=== PATIENT | female | born 1945 | race Caucasian/White ===

== ENCOUNTER 2018-06-09 11:11 | Outpatient (CLI) | payer BC ==
[2018-06-09 12:15] LABS: Hemoglobin 11.5 g/dL (12.0-16.0); Mean Corpuscular Hemoglobin 29.2 pg (27.0-31.0); Mean Platelet Volume 7.5 fL (7.4-10.4); Platelet Count 149 thou/uL (130-400); RBC Distribution Width 15.4 % (11.5-14.5); Red Blood Cell (RBC) Count 3.94 mill/uL (4.20-5.40); White Blood Cell (WBC) Count 4.3 thou/uL (4.8-10.8)
[2018-06-09 12:34] LABS: Anion Gap 13 mmol/L (10-20); BUN (Urea Nitrogen) 25 mg/dL (9.8-20.1); Calc. Creatinine Clearance 0 mL/min (70-130); Calcium 9.5 mg/dL (7.8-10.44); Carbon Dioxide 25 mmol/L (23-31); Chloride 107 mmol/L (98-107); Estimated GFR-MDRD 35; Glucose 138 mg/dL (80-115); Potassium 4.3 mmol/L (3.5-5.1); Sodium 141 mmol/L (136-145)
--- NOTE | 2018-06-09 17:06 | EKG ---
Test Reason : Blood Pressure : / mmHG Vent. Rate : 069 BPM Atrial Rate : 069 BPM P-R Int : 216 ms QRS Dur : 098 ms QT Int : 412 ms P-R-T Axes : 065 046 063 degrees QTc Int : 441 ms Sinus rhythm with 1st degree A-V block Incomplete right bundle branch block Possible Anterior infarct , age undetermined Abnormal ECG When compared with ECG of 13-JAN-2017 13:05, No significant change was found Confirmed by DR. Nitin PARKINSON ([id number]) on 06/09/2018 5:06:41 PM Referred By: JOHNNA Confirmed By:DR. Nitin PARKINSON
== END 2018-06-09 11:12 | disposition home or self-care (01) ==
LOC: LABBT 11:11
PROVIDERS: ATTEND Surgery
DX: Z01.818 Encounter for other preprocedural examination (principal); C90.00 Multiple myeloma not having achieved remission
CPT/HCPCS: 80048; 85027; 93005; 93010

== ENCOUNTER 2018-06-16 10:56 | Day surgery (SDC) | payer BC ==
[2018-06-09 11:37] VITALS: BMI 32.1
[2018-06-16] MEDS ORDERED: CEFAZOLIN 2 GM/50 ML BAG ONE (11:48)
[2018-06-16] MEDS ORDERED: Lidocaine 2% PF 5 ML VIAL ONE (13:36)
[2018-06-16] MEDS ORDERED: Bupivacaine/Epinephrine 0.25% 30 ML VIAL ONE (13:36)
[2018-06-16] MEDS ORDERED: Propofol 500 MG/50 ML VIAL ONE (13:45)
[2018-06-16] MEDS ORDERED: Fentanyl 100 MCG/2 ML VIAL ONE (13:45)
--- NOTE | 2018-06-16 15:47 | RAD ---
EXAM: CHEST ONE VIEW: 06/16/18 HISTORY: 71-year-old female with history of postop open heart. COMPARISON: 01/16/17. FINDINGS: Right central line injection port. Postop midline sternotomy. Heart size is within normal limits. The lungs are clear. No confluent pneumonia, overt edema, or pleural effusion . IMPRESSION: No acute intrathoracic disease. Postop midline sternotomy. Right central line and injection port. POS: TPC
[2018-06-16] MEDS ORDERED: PROPOFOL 200 MG/20 ML VIAL ONE (16:19)
--- NOTE | 2018-06-20 08:37 | OP ---
DATE OF PROCEDURE: 06/16/2018 PREOPERATIVE DIAGNOSIS: Multiple myeloma. POSTOPERATIVE DIAGNOSIS: Multiple myeloma. PROCEDURE PERFORMED: Right MediPort (tunneled central line subcutaneous port, CT injectable right IJ). ANESTHESIA: TIVA, local. COMPLICATIONS: None. SPECIMEN: None. FINDINGS: Tip of the catheter at the atriocaval junction. DESCRIPTION OF PROCEDURE: The patient was taken to the operating room and laid supine on the operating room table. After sedation was obtained, bilateral neck and chest were prepped and draped in a sterile fashion. Local anesthetic was infiltrated over the right internal jugular vein. The patient placed in Trendelenburg position. A 22-gauge finder needle followed by a Seldinger needle used to infiltrate the right internal jugular vein. Wire was passed into the superior vena cava under fluoro guidance. The dilators used the guide to dilate the internal jugular vein. 3 cm incision was made in the right upper chest, tubing for the MediPort tunneled from the inferior to superior incision and suture sheath was placed over the wire into the superior vena cava under fluoro guidance. The dilator and wire removed and the catheter was sewn into the sheath. The sheath was peeled away. The tip of the catheter was at the atriocaval junction. The MediPort tubing cut to fit the MediPort at the lower incision, connected to the MediPort, which was sewn to the chest wall in the subcutaneous pocket using Prolene. MediPort flushes and draws blood without difficulty. It was flushed with a heparin flush. The wounds were all irrigated, closed using 3-0 Vicryl, 4-0 Monocryl, and Dermabond. The patient was sent to Recovery in stable condition. All instrument counts, needle counts, and lap counts were correct. Job ID: [id number]
== END 2018-06-16 16:10 | disposition home or self-care (01) ==
LOC: SDC 10:56
PROVIDERS: ATTEND Surgery
PROC: 0JH63WZ Insertion of Totally Implantable Vascular Access Device into Chest Subcutaneous Tissue and Fascia, Percutaneous Approach (ICD-10-PCS; principal; 2018-06-16)
DX: C90.00 Multiple myeloma not having achieved remission (principal); I25.10 Atherosclerotic heart disease of native coronary artery without angina pectoris; E03.9 Hypothyroidism, unspecified; E78.5 Hyperlipidemia, unspecified; E11.9 Type 2 diabetes mellitus without complications; I10 Essential (primary) hypertension; Z79.4 Long term (current) use of insulin; Z79.82 Long term (current) use of aspirin; Z79.899 Other long term (current) drug therapy; Z95.1 Presence of aortocoronary bypass graft
CPT/HCPCS: 71045; C1788; J1642; J2001; J2704; J3010

== ENCOUNTER 2018-09-11 13:06 | Outpatient (CLI) | payer BC ==
--- NOTE | 2018-09-11 13:28 | RAD ---
EXAM: Chest 2 views: HISTORY: Pneumonia. Multiple myeloma. COMPARISON: 06/16/2018 FINDINGS: There is a normal-sized cardiomediastinal silhouette. There is no evidence of consolidation, mass, or pleural effusion. The Mediport is unchanged in position. The patient is status post sternotomy. IMPRESSION: No evidence of acute cardiopulmonary disease
== END 2018-09-11 13:07 | disposition home or self-care (01) ==
LOC: BICRAD 13:06
PROVIDERS: ATTEND Internal Medicine Hematology & Oncology
DX: J18.9 Pneumonia, unspecified organism (principal); D70.1 Agranulocytosis secondary to cancer chemotherapy; C90.02 Multiple myeloma in relapse; D70.8 Other neutropenia
CPT/HCPCS: 71046; 80053; 81001; 82248; 83615; 84100; 84550

== ENCOUNTER 2019-03-08 18:55 | Inpatient (IN) | payer BC, MEDICARE ==
[2019-03-08 20:01] LABS: #Lymphocytes 0.9 thou/uL (1.20-3.40); #Monocytes 0.5 thou/uL (0.11-0.59); #Neutrophils 7.8 thou/uL (1.40-6.50); %Basophils 0.1 % (0.0-1.0); %Eosinophils 0.4 % (0.0-10.0); %Lymphocytes 9.6 % (21.0-51.0); %Monocytes 5.4 % (0.0-10.0); %Neutrophils 84.6 % (42.0-75.0); Hemoglobin 7.5 g/dL (12.0-16.0); Mean Corpuscular HGB CONC 32.6 g/dL (32.0-36.0); Mean Corpuscular Hemoglobin 27.3 pg (27.0-31.0); Mean Corpuscular Volume 83.8 fL (78.0-98.0); Mean Platelet Volume 7.8 fL (7.4-10.4); Platelet Count 283 thou/uL (130-400); RBC Distribution Width 17.5 % (11.5-14.5); Red Blood Cell (RBC) Count 2.74 mill/uL (4.20-5.40); White Blood Cell (WBC) Count 9.3 thou/uL (4.8-10.8)
[2019-03-08] MEDS ORDERED: Cefepime 2 GM VIAL ONE (20:07)
[2019-03-08 20:23] LABS: ALT (SGPT) 46 U/L (8-55); AST (SGOT) 28 U/L (5-34); Albumin 3.2 g/dL (3.4-4.8); Alkaline Phosphatase 214 U/L (40-110); Anion Gap 11 mmol/L (10-20); BUN (Urea Nitrogen) 21 mg/dL (9.8-20.1); Bilirubin, Total 0.5 mg/dL (0.2-1.2); CK (CPK) 20 U/L (29-168); Calc. Creatinine Clearance 0 mL/min (70-130); Calcium 8.3 mg/dL (7.8-10.44); Carbon Dioxide 21 mmol/L (23-31); Chloride 106 mmol/L (98-107); Estimated GFR-MDRD 31; Globulin 2.5 g/dL (2.4-3.5); Glucose 197 mg/dL (83-110); Lipase 32 U/L (8-78); Protein, Total 5.7 g/dL (6.0-8.3); Sodium 134 mmol/L (136-145)
--- NOTE | 2019-03-08 20:36 | RAD ---
XR Chest 1 View Portable History: Fever Comparison: Chest radiograph September 2018 Findings: Port catheter tip is in good position. Lungs are clear. No pneumothorax. No effusion. No ac lower [place] osseous abnormality. Impression: No acute intrathoracic abnormality.
[2019-03-08 22:20] LABS: Bilirubin Negative (Negative); Blood, Urine 1+ (Negative); Glucose, Urine (Dipstick) Normal (Negative); Leukocyte 500 Leu/uL (Negative); Nitrite Negative (Negative); Protein, Urine (Dipstick) 100 mg/dL (Neg-Trace); Urobilinogen Normal mg/dL (Less than 2)
[2019-03-08 22:25] LABS: Clarity Turbid (Clear)
[2019-03-08 22:26] LABS: Bacteria/HPF 1+ HPF (None Seen); Squamous Epithelial 0-3 HPF (0-3); WBC/HPF Greater Than 50 HPF (0-3)
[2019-03-08] MEDS ORDERED: Ondansetron ODT 4 MG TAB SL PRN (23:26)
[2019-03-08] MEDS ORDERED: Ondansetron PF 4 MG/2 ML Vial IVP PRN (23:26)
[2019-03-08] MEDS ORDERED: Sodium Chloride 0.9% 1,000 ML IV SCH (23:30)
[2019-03-09 03:37] VITALS: BMI 34.2
--- NOTE | 2019-03-09 04:02 | PDOC.EVN ---
Event Note - Event Note Event Note: [id number] HP
[2019-03-09] MEDS: Sodium Chloride 0.9% 1,000 ML IV SCH ×2 (04:15→16:38)
--- NOTE | 2019-03-09 04:28 | HP ---
CHIEF COMPLAINT: Fever. HISTORY OF PRESENT ILLNESS: Ms. Maria is a 73-year-old female with past medical history of multiple myeloma, on chemotherapy, recurrent urinary tract infections, hypertension, hyperlipidemia, hypothyroidism, diabetes mellitus type 2, stem cell transplant, among others. She presented to the emergency room with weakness and fever. The patient has had a urinary tract infection and fever for 2 weeks. The first antibiotic treatment helped, she started on a different antibiotic today. The patient is on maintenance chemo. Workup in the emergency room, the patient was found to have urinary tract infection. Septic workup done in the ED. The patient is started on IV antibiotics, IV cefepime and IV vancomycin. PAST MEDICAL HISTORY: 1. Multiple myeloma. 2. Stem cell transplant. 3. Diabetes mellitus, type 2. 4. Hypertension. 5. Hyperlipidemia. 6. Hypothyroidism. PAST SURGICAL HISTORY: 1. Cholecystectomy. 2. Coronary artery bypass graft surgery. SOCIAL HISTORY: Denies alcohol drinking and no smoking history. ALLERGIES: NO KNOWN ALLERGIES. HOME MEDICATIONS: Please see home medication reconciliation form for updated medications. REVIEW OF SYSTEMS: Review of 14 systems is negative except what is mentioned in the history of present illness. PHYSICAL EXAMINATION: GENERAL: The patient is awake, alert, does not appear to be in acute distress. CURRENT VITAL SIGNS: Blood pressure 129/59, temperature 99.5, respiratory rate 16, pulse is 75. HEAD AND NECK: Normocephalic, atraumatic. Neck is supple. No JVD. CHEST: Fair bilateral air entry. HEART: S1, S2. Regular. ABDOMEN: Soft, nontender. Bowel sounds are present. NEUROLOGIC: Awake, alert, oriented x3. PSYCH: Normal mood. EXTREMITIES: No clubbing or cyanosis. IMAGING: Chest x-ray no acute findings. LABORATORY DATA: Sodium 134, potassium 4.0, BUN is 21, creatinine 1.6, glucose 197. WBC 9.3, hemoglobin 7.5, platelets 183. Urinalysis is positive for wbc's, leukocyte esterase, and bacteria. ASSESSMENT: 1. Fever in an immunocompromised patient. 2. Sepsis secondary to urinary tract infection. 3. Acute urinary tract infection. 4. Multiple myeloma, on chemotherapy. 5. Immunocompromised. 6. Diabetes mellitus with hyperglycemia. 7. Hypertension. PLAN: 1. Admit. 2. Septic workup including blood cultures, urine cultures. 3. IV antibiotics. Continue with IV cefepime and IV vancomycin. 4. IV fluid hydration. 5. Reconcile home medications. 6. DVT prophylaxis as appropriate. 7. Expected length of stay two midnights or more. Job ID: [id number]
[2019-03-09] MEDS: Cefepime 1 GM in Sodium Chloride 0.9% 100 ML IVPB SCH ×2 (07:22→20:07)
[2019-03-09] MEDS ORDERED: Dextrose 5% in Water 1,000 ML IV PRN (07:46)
[2019-03-09] MEDS ORDERED: HumaLOG 300 UNITS/3 ML VIAL SC PRN (07:46)
[2019-03-09] MEDS ORDERED: Dextrose 50% Abboject 50 ML SYRINGE SLOW IVP PRN (07:46)
--- NOTE | 2019-03-09 07:51 | PDOC.HOSPP ---
- Subjective Encounter Date: 03/09/19 Encounter Time: 07:50 Subjective: 73 y/o female with MM s/p stem cell transplant with recurrence, recurrent UTI with known history of incomplete voiding admitted with intractable dysuria and fever despite oral antibiotics associated with generalized weakness. Started on broad spectrum antibiotics. Feeling better. Fever is down currently. - Objective Vital Signs & Weight: Vital Signs (12 hours) Temp Pulse Resp BP Pulse Ox 03/09/19 04:14 97.9 F 74 16 134/67 97 03/09/19 00:00 98.5 F 78 183 H 137/66 97 03/08/19 23:30 97 03/08/19 23:28 98.5 F 78 18 137/66 94 L Weight Weight 175 lb 0.752 oz Result Diagrams: 03/08/19 19:47 03/08/19 19:47 Additional Labs: Accuchecks 03/09/19 03/08/19 04:31 23:22 POC Glucose 102 187 H Hospitalist ROS - Medication Medications: Active Medications Generic Name Dose Route Start Last Admin Trade Name Bhavya PRN Reason Stop Dose Admin Sodium Chloride 1,000 mls @ 90 mls/hr 03/08/19 23:30 03/09/19 04:22 Normal Saline 0.9% IV 03/09/19 08:30 Not Given .[id number] JONO Cefepime HCl 1 gm/ Sodium 100 mls @ 200 mls/hr 03/09/19 08:00 03/09/19 07:22 Chloride IVPB 100 mls 0800,2000 JONO Administration Sodium Chloride 1,000 mls @ 70 mls/hr 03/09/19 04:15 03/09/19 04:15 Normal Saline 0.9% IV 1,000 mls .[id number] JONO Administration - Exam General Appearance: awake alert Eye: anicteric sclera ENT: normocephalic atraumatic, moist mucosa Neck: supple, no JVD Heart: RRR Respiratory: no wheezes, no ronchi, normal chest expansion Respiratory - other findings: few bibasal crackles and transmitted sound Gastrointestinal: soft, non-tender, non-distended, normal bowel sounds Extremities: 1+ LE edema Neurological: cranial nerve grossly intact, no focal deficits Musculoskeletal: generalized weakness Psychiatric: normal affect, A&O x 3 Hosp A/P (1) Sepsis Code(s): A41.9 - SEPSIS, UNSPECIFIED ORGANISM Status: Acute (2) UTI (urinary tract infection) Status: Acute (3) Urinary retention Code(s): R33.9 - RETENTION OF URINE, UNSPECIFIED Status: Acute (4) Multiple myeloma in relapse Code(s): C90.02 - MULTIPLE MYELOMA IN RELAPSE Status: Acute (5) Diabetes mellitus Code(s): E11.9 - TYPE 2 DIABETES MELLITUS WITHOUT COMPLICATIONS Status: Acute (6) Hypothyroid Code(s): E03.9 - HYPOTHYROIDISM, UNSPECIFIED Status: Acute (7) CKD (chronic kidney disease) stage 3, GFR 30-59 ml/min Code(s): N18.3 - CHRONIC KIDNEY DISEASE, STAGE 3 (MODERATE) Status: Acute (8) CRISPIN (acute kidney injury) Code(s): N17.9 - ACUTE KIDNEY FAILURE, UNSPECIFIED Status: Acute (9) Anemia Code(s): D64.9 - ANEMIA, UNSPECIFIED Status: Acute (10) Physical deconditioning Code(s): R53.81 - OTHER MALAISE Status: Acute - Plan Continuje broad spectrum antibiotics. Awaitt culture results. Get CT abd/pelvis Monitor post void residuals Restart insulin therapy Hold lasix. Monitor HB and renal function. Awaiting Oncology consult. Consult PT
[2019-03-09 08:55] LABS: #Eosinphils 0.1 thou/uL (0.0-0.7); #Lymphocytes 0.5 thou/uL (1.20-3.40); #Monocytes 0.3 thou/uL (0.11-0.59); #Neutrophils 5.9 thou/uL (1.40-6.50); %Basophils 0.1 % (0.0-1.0); %Eosinophils 0.7 % (0.0-10.0); %Lymphocytes 7.3 % (21.0-51.0); %Neutrophils 86.8 % (42.0-75.0); Mean Corpuscular HGB CONC 31.5 g/dL (32.0-36.0); Mean Corpuscular Volume 85.6 fL (78.0-98.0); Mean Platelet Volume 7.5 fL (7.4-10.4); Platelet Count 255 thou/uL (130-400); RBC Distribution Width 17.5 % (11.5-14.5); Red Blood Cell (RBC) Count 2.96 mill/uL (4.20-5.40); White Blood Cell (WBC) Count 6.8 thou/uL (4.8-10.8)
[2019-03-09] MEDS ORDERED: Vancomycin HCl 1 GM in Sodium Chloride 0.9% 250 ML 250 ML IVPB SCH (09:00)
[2019-03-09 09:16] LABS: Anion Gap 11 mmol/L (10-20); BUN (Urea Nitrogen) 16 mg/dL (9.8-20.1); Calc. Creatinine Clearance 51 mL/min (70-130); Calcium 8.4 mg/dL (7.8-10.44); Carbon Dioxide 20 mmol/L (23-31); Chloride 113 mmol/L (98-107); Estimated GFR-MDRD 41; Glucose 111 mg/dL (83-110); Potassium 4.1 mmol/L (3.5-5.1); Sodium 140 mmol/L (136-145)
--- NOTE | 2019-03-09 09:17 | CT ---
CT Abdomen Pelvis WO Con History: Sepsis with recurrent urinary tract infections. Comparison: None. Findings: Lung bases are clear. No pericardial effusion. Calcified periaortic lymph nodes. Spleen is enlarged. Prior cholecystectomy. Calcifications within the expected location of the pancrea tic uncinate process. Abnormal left perinephric stranding. There arcuate vessel calcifications without definite renal calcu li appreciated numerous right gonadal phleboliths adjacent to the ureter although separate from the ureter. 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 The left renal vein is retroaortic. No dilated loops of large or small bowel. No acute osseous abnormality. Impression: 1. Abnormal asymmetric left perinephric stranding suggesting pyelonephritis. 2. Numerous calcified uterine fibroids. 3. Moderate atherosclerotic disease. 4. Uncinate process and pancreatic head calcifications likely sequelae of prior pancreatitis. 5. 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 Nonemergent follow-up CT urogra m recommended for further evaluation. 6. Mild splenomegaly.
[2019-03-09] MEDS: Magnesium Oxide 400 MG TAB PO SCH ×2 (10:04→20:07)
[2019-03-09] MEDS: Multivitamin W/ Minerals 1 TAB PO SCH (10:04)
[2019-03-09] MEDS: Folic Acid 1 MG TAB PO SCH (10:04)
[2019-03-09] MEDS: Aspirin 81 mg Enteric Coated Tablet PO SCH (10:05)
[2019-03-09] MEDS ORDERED: FLU VACC TS2019-20(65YR UP)/PF 180 MCG/0.5 ML SYRINGE IM ONE (12:30)
--- NOTE | 2019-03-09 15:24 | CON ---
DATE OF CONSULTATION: REASON FOR CONSULT: Multiple myeloma. HISTORY OF PRESENT ILLNESS: Ms. Maria is a pleasant 73-year-old female with IgG lambda multiple myeloma. She is currently on Darzalex and has been responding well. Over the last several weeks, she has been struggling with intermittent fever. She has had urinary tract infections growing Pseudomonas and has received multiple antibiotics. She is currently on oral Levaquin at home. Last night, she ran a temperature of 104, so she was brought to the emergency room for evaluation. She had an abdominal and pelvis CT, which showed left perinephric stranding suggestive of pyelonephritis. She was due to see Dr. Hdz today, who has been consulted. She has been started on antibiotics and her fever is currently gone. PAST MEDICAL HISTORY: 1. Multiple myeloma. 2. Pseudomonas UTI. 3. Peripheral vascular disease. 4. Chronic renal insufficiency. 5. Diabetes mellitus. 6. Coronary artery disease. 7. Hypertension. 8. High cholesterol. PAST SURGICAL HISTORY: CABG, MediPort placement, and stem cell transplant, autologous. ALLERGIES: NO KNOWN DRUG ALLERGIES. CURRENT MEDICATIONS: 1. Amlodipine. 2. Ecotrin. 3. Lipitor. 4. Folic acid. 5. Lasix. 6. Gabapentin. 7. Lantus. 8. Levoxyl. 9. Magnesium. 10. Metoprolol. 11. Multivitamin. FAMILY HISTORY: Noncontributory. SOCIAL HISTORY: , has 2 children. Lives with her spouse. No alcohol, tobacco, or illicit drug use. REVIEW OF SYSTEMS: A 10-point review of systems is negative except for fever and urinary urgency. PHYSICAL EXAMINATION: VITAL SIGNS: Temperature is 99, pulse is 79, respiratory rate 16, BP is 149/67, she is 93% on room air. GENERAL: This is a well-developed, well-nourished female, in no acute distress. HEENT: Normocephalic and atraumatic. Pupils are equal and reactive to light. NECK: Supple. CV: Regular rate and rhythm. LUNGS: Clear. ABDOMEN: Soft and nontender. Bowel sounds are positive. EXTREMITIES: No clubbing, cyanosis, or edema. SKIN: No rash. HEMATOLOGIC: No petechiae or purpura. NEUROLOGIC: Nonfocal. PSYCH: She is alert, oriented, and appropriate. PERTINENT LABS AND X-RAYS: Current WBCs 6.8, hemoglobin 8.0, hematocrit 25.3, platelet count is 255,000, she got 86% neutrophils and 7% lymphocytes. Sodium is 140, potassium 4.1, chloride 113, CO2 is 20, BUN is 16, creatinine 1.27, calcium is 8.4, phosphorus 3.0, bilirubin 0.5, AST is 28, ALT is 46, alkaline phosphatase is 214. BNP is 182. Serum total protein 5.7, albumin 3.2, globulin 2.5. Urine showed 1+ bacteria. Radiology per HPI. ASSESSMENT: 1. Urinary tract infection. 2. Febrile illness, likely secondary to urinary tract infection. 3. IgG multiple myeloma. 4. Anemia with renal insufficiency. DISCUSSION: The patient's Darzalex has currently been held secondary to fevers and fatigue. Dr. Hdz has been consulted for his recommendations of treatment of her chronic UTI. The patient does receive Procrit in the outpatient setting for chronic renal insufficiency and anemia, her last dose was on 03/06. Current followup in the outpatient setting to resume those shots. Follow CBC. Thank you for the consult. We will follow along with her hospital course. Job ID: [id number]
[2019-03-09] MEDS: Levothyroxine Sodium 88 MCG TAB PO SCH (16:05)
--- NOTE | 2019-03-09 17:59 | CON ---
DATE OF CONSULTATION: 03/09/2019 REASON FOR CONSULTATION: Urinary tract infection. CHIEF COMPLAINT: Fevers. HISTORY OF PRESENT ILLNESS: This is a 73-year-old female with a history of multiple myeloma, currently on maintenance chemotherapy. She has a history of recurrent Pseudomonas infections and was initially seen by me in my office on January 02, of this year. At that point, she had been on Cipro, and her symptoms had resolved. She did well until about 2 weeks ago, at which point, she began developing dysuria and low-grade fevers. This acutely worsened yesterday with fever spiking to 104, and so she was seen in the emergency room and was admitted. She tells me that she had been on nitrofurantoin last week, which did not help her symptoms. Her urine culture finally resulted yesterday, and she was started on Levaquin by her Oncologist; however, as mentioned above, she acutely worsened and was seen in the emergency room. In the emergency room, her creatinine was 1.6 and white count 9.3. She was admitted to the Hospitalist Service blood and urine cultures obtained and started on cefepime and vancomycin. In speaking with her today, she still has some suprapubic discomfort and dysuria, but denies hematuria, flank pain, nausea, vomiting, or subjective fevers this morning. PAST MEDICAL HISTORY: Recurrent urinary tract infections, multiple myeloma, diabetes, hypertension, hyperlipidemia, and hypothyroidism. PAST SURGICAL HISTORY: CABG and gallbladder. SOCIAL HISTORY: Nonsmoker. No substance abuse. ALLERGIES: NO KNOWN ALLERGIES. HOME MEDICATIONS: Reviewed. Pertinent for nitrofurantoin last week and Levaquin 1 dose yesterday. FAMILY HISTORY: Reviewed, noncontributory. REVIEW OF SYSTEMS: Ten-point review of systems is negative except as mentioned in my HPI. PHYSICAL EXAMINATION: VITAL SIGNS: T-max 99.3 earlier this morning, otherwise vitals are stable. GENERAL: No acute distress. Conversant. HEENT: Head, normocephalic and atraumatic. Eyes; extraocular movements are intact. Sclerae are nonicteric. Oral mucosa is moist. LUNGS: Unlabored breathing with symmetric chest expansion. HEART: Regular rate and rhythm. ABDOMEN: Soft, nontender, and nondistended. : No flank tenderness. No suprapubic tenderness. SKIN: Warm and dry. EXTREMITIES: Without clubbing or cyanosis. NEUROLOGIC: Alert and oriented x3. PSYCHIATRIC: Normal mood and affect. LABORATORY DATA: White count today is 6.8. Creatinine is 1.27. Carbon dioxide 20. Urinalysis from yesterday positive for blood and leukocyte esterase, negative nitrites. CT scan indicates possible left pyelonephritis and duplicated right renal collecting system. ASSESSMENT AND PLAN: Acute cystitis without hematuria, recurrent urinary tract infection, immunocompromised status. I agree with broad-spectrum antibiotics. We will await the cultures from this admission before narrowing, although Levaquin was in option based on her most recent culture. She will likely require 4 weeks of appropriate antibiotic therapy, after which we will transition to prophylaxis, likely termite renewal inspector. I do not believe the CT scan indicates any need for intervention. Job ID: [id number]
[2019-03-09] MEDS: Insulin Glargine 45 UNITS in Pre-Filled Syringe 1 EACH SC SCH (20:04)
[2019-03-09] MEDS: Gabapentin 100 MG CAP PO SCH (20:07)
[2019-03-09] MEDS: Atorvastatin Calcium 20 MG TAB PO SCH (20:07)
[2019-03-09] MEDS ORDERED: Vancomycin HCl 750 MG in Sodium Chloride 0.9% 250 ML 250 ML IVPB SCH (21:00)
[2019-03-10] MEDS: Levothyroxine Sodium 88 MCG TAB PO SCH (05:24)
[2019-03-10 05:26] LABS: #Eosinphils 0.1 thou/uL (0.0-0.7); #Lymphocytes 0.6 thou/uL (1.20-3.40); #Monocytes 0.3 thou/uL (0.11-0.59); #Neutrophils 3.8 thou/uL (1.40-6.50); %Basophils 0.3 % (0.0-1.0); %Eosinophils 1.9 % (0.0-10.0); %Monocytes 5.4 % (0.0-10.0); %Neutrophils 79.4 % (42.0-75.0); Hemoglobin 7.6 g/dL (12.0-16.0); Mean Corpuscular HGB CONC 31.2 g/dL (32.0-36.0); Mean Corpuscular Hemoglobin 26.8 pg (27.0-31.0); Mean Corpuscular Volume 85.9 fL (78.0-98.0); Mean Platelet Volume 7.7 fL (7.4-10.4); Platelet Count 246 thou/uL (130-400); RBC Distribution Width 17.8 % (11.5-14.5); Red Blood Cell (RBC) Count 2.82 mill/uL (4.20-5.40); White Blood Cell (WBC) Count 4.7 thou/uL (4.8-10.8)
[2019-03-10 05:42] LABS: Albumin 2.9 g/dL (3.4-4.8); Anion Gap 11 mmol/L (10-20); BUN (Urea Nitrogen) 11 mg/dL (9.8-20.1); Calc. Creatinine Clearance 55 mL/min (70-130); Calcium 8.2 mg/dL (7.8-10.44); Carbon Dioxide 21 mmol/L (23-31); Chloride 112 mmol/L (98-107); Estimated GFR-MDRD 46; Glucose 77 mg/dL (83-110); Phosphorus 3.2 mg/dL (2.3-4.7); Potassium 3.7 mmol/L (3.5-5.1); Sodium 140 mmol/L (136-145)
[2019-03-10] MEDS: Cefepime 1 GM in Sodium Chloride 0.9% 100 ML IVPB SCH ×2 (08:37→20:06)
[2019-03-10] MEDS: Multivitamin W/ Minerals 1 TAB PO SCH (08:37)
[2019-03-10] MEDS: Folic Acid 1 MG TAB PO SCH (08:37)
[2019-03-10] MEDS: Magnesium Oxide 400 MG TAB PO SCH ×2 (08:37→21:20)
[2019-03-10] MEDS: Aspirin 81 mg Enteric Coated Tablet PO SCH (08:37)
[2019-03-10] MEDS: Sodium Chloride 0.9% 1,000 ML IV SCH (08:42)
--- NOTE | 2019-03-10 10:20 | PDOC.MOPN ---
Interval History: feeling better, fever down, no n/v. eating better - Vital Signs Vital Signs: Vital Signs (12 hours) Temp Pulse Resp BP Pulse Ox 03/10/19 08:19 98.4 F 74 16 139/63 98 03/10/19 08:00 98 Weight Weight 175 lb 0.752 oz - Physical Exam General: Alert HEENT: Atraumatic Lungs: Clear to auscultation Cardiovascular: Regular rate Abdomen: Normal bowel sounds, Soft, No tenderness Extremities: No clubbing, Other (+ venous stasis changes) Skin: No rashes Neurological: Normal gait, Normal speech Psych/Mental Status: Mental status NL - Labs Result Diagrams: 03/10/19 05:00 03/10/19 05:00 Lab results: Laboratory Results - last 24 hr 03/10/19 05:05: POC Glucose 79 03/10/19 05:00: WBC 4.7 L, RBC 2.82 L, Hgb 7.6 L, Hct 24.3 L, MCV 85.9, MCH 26.8 L, MCHC 31.2 L, RDW 17.8 H, Plt Count 246, MPV 7.7, Neutrophils % 79.4 H, Neutrophils % (Manual) Not Reportable, Lymphocytes % 13.0 L, Monocytes % 5.4, Eosinophils % 1.9, Basophils % 0.3, Neutrophils # 3.8, Lymphocytes # 0.6 L, Monocytes # 0.3, Eosinophils # 0.1, Basophils # 0.0 03/10/19 05:00: Sodium 140, Potassium 3.7, Chloride 112 H, Carbon Dioxide 21 L, Anion Gap 11, BUN 11, Creatinine 1.17 H, Estimated GFR (MDRD) 46, BUN/ Creatinine Ratio 9.40, Glucose 77 L, Calcium 8.2, Phosphorus 3.2, Albumin 2.9 L 03/09/19 20:03: POC Glucose 151 H 03/09/19 16:45: POC Glucose 90 A/P - Problem (1) Anemia Current Visit: Yes Code(s): D64.9 - ANEMIA, UNSPECIFIED Status: Acute (2) CKD (chronic kidney disease) stage 3, GFR 30-59 ml/min Current Visit: Yes Code(s): N18.3 - CHRONIC KIDNEY DISEASE, STAGE 3 (MODERATE ) Status: Acute (3) Multiple myeloma in relapse Current Visit: Yes Code(s): C90.02 - MULTIPLE MYELOMA IN RELAPSE Status: Acute - Plan Plan: 1. continue antibiotics 2. transfuse 1 U 3. hold myeloma treatment 4. appreciate urology work up
[2019-03-10 20:16] LABS: Vancomycin, Trough 8.2 ug/mL
[2019-03-10] MEDS ORDERED: Vancomycin HCl 1 GM in Premix Bag 1 BAG IVPB SCH (21:00)
[2019-03-10] MEDS ORDERED: Vancomycin HCl 750 MG in Sodium Chloride 0.9% 250 ML 250 ML IVPB SCH (21:00)
[2019-03-10] MEDS: Insulin Glargine 45 UNITS in Pre-Filled Syringe 1 EACH SC SCH (21:17)
[2019-03-10] MEDS: Gabapentin 100 MG CAP PO SCH (21:19)
[2019-03-10] MEDS: Atorvastatin Calcium 20 MG TAB PO SCH (21:20)
--- NOTE | 2019-03-10 21:51 | PDOC.HOSPP ---
- Subjective Encounter Date: 03/10/19 Encounter Time: 21:49 Subjective: The patient reports having fever of 104 on day of admission, rigors, chills. No chest pain or shortness of breath. She has had catheter since May. She denies diarrhea, abdominal pain, nausea, vomiting, had some urinary discomfort. Currently asymptomatic without complaints - Objective Vital Signs & Weight: Vital Signs (12 hours) Temp Pulse Pulse Resp BP BP Pulse Ox 03/10/19 19:41 99.0 F 77 16 139/63 92 L 03/10/19 17:50 98.2 F 83 16 174/74 H 96 03/10/19 15:30 98.5 F 80 16 149/69 H 92 L 03/10/19 15:15 98.2 F 83 16 156/67 H 93 L Weight Weight 175 lb 0.752 oz I&O: 03/09/19 03/10/19 03/11/19 06:59 06:59 06:59 Intake Total 440 1408 Balance 440 1408 Result Diagrams: 03/10/19 05:00 03/10/19 05:00 Additional Labs: Accuchecks 03/10/19 03/10/19 03/10/19 21:04 16:37 11:45 POC Glucose 134 H 148 H 196 H 03/10/19 05:05 POC Glucose 79 Hospitalist ROS - Review of Systems Constitutional: denies: fever, chills Eyes: denies: vision change Genitourinary: denies: frequency - Medication Medications: Active Medications Generic Name Dose Route Start Last Admin Trade Name Freq PRN Reason Stop Dose Admin Aspirin 81 mg 03/09/19 09:00 03/10/19 08:37 Ecotrin PO 81 mg DAILY JONO Administration Atorvastatin Calcium 20 mg 03/09/19 21:00 03/10/19 21:20 Lipitor PO 20 mg HS JONO Administration Folic Acid 1 mg 03/09/19 09:00 03/10/19 08:37 Folvite PO 1 mg DAILY JONO Administration Gabapentin 200 mg 03/09/19 21:00 03/10/19 21:19 Neurontin PO 200 mg HS JONO Administration Cefepime HCl 1 gm/ Sodium 100 mls @ 200 mls/hr 03/09/19 08:00 03/10/19 20:06 Chloride IVPB 100 mls 0800,2000 JONO Administration Sodium Chloride 1,000 mls @ 70 mls/hr 03/09/19 04:15 03/10/19 08:42 Normal Saline 0.9% IV 1,000 mls .[id number] JONO Administration Insulin Glargine 45 units/ 0.45 mls @ 0 mls/hr 03/09/19 21:00 03/10/19 21:17 Miscellaneous Medication SC 0.45 mls HS JONO Administration Vancomycin HCl 1 gm/ Device 200 mls @ 200 mls/hr 03/10/19 21:00 03/10/19 21: 14 IVPB 200 mls 2100 JONO Administration Iron/Minerals/Multivitamins 1 tab 03/09/19 09:00 03/10/19 08:37 Theragran M PO 1 tab DAILY JONO Administration Levothyroxine Sodium 88 mcg 03/09/19 09:00 03/10/19 05:24 Synthroid PO 88 mcg 0600 JONO Administration Magnesium Oxide 400 mg 03/09/19 09:00 03/10/19 21:20 Magnesium Oxide PO 400 mg BID JONO Administration Metoprolol Succinate 25 mg 03/09/19 21:00 03/10/19 21:21 Toprol Xl PO 25 mg HS JONO Administration - Exam Eye: PERRL, anicteric sclera ENT: normocephalic atraumatic, no oropharyngeal lesions Neck: supple, no JVD Heart: RRR, no gallops, no rubs Respiratory: CTAB, no wheezes, no rales Gastrointestinal: soft, non-tender, non-distended Extremities: no cyanosis, no clubbing, no edema Skin: normal turgor, no lesions, no rashes Neurological: cranial nerve grossly intact, normal sensation to touch, no focal deficits, no new deficit Musculoskeletal: normal tone, normal strength, no muscle wasting Psychiatric: normal affect, normal behavior, A&O x 3, oriented to person Hosp A/P - Plan Consults: Hospice Blood culture: 1/2 gram positive cocci Chest x ray: negative CT abdomen: pyelonephritis. Fibroid. Mild splenomegaly. Duplication of right renal collecting system. Moderate atherosclerosis This is a 73 year old female with recurrent UTI who presented with subjective fever on levaquin. Blood culture growing 1/2 gram positive cocci, started on vanc and cefepime #Recurrent Pseudomonal UTI with pyelonephritis #Possible gram positive bacteremia - patient reported fever at home, however afebrile in the hospital. Started on vanc and cefepime empirically currently day 2 - blood culture growing 1/2 gram positive cocci, urine culture growing pseudomonas on 03/07, lira sensitive. Will repeat blood culture - urology consult, recs appreciated. No intervention for duplication of right renal collecting system - ID consult for recurrent Pseudomonal UTI, possible gram positive bacteremia Multiple myeloma - oncology on board, continue to hold treatment Anemia hemoglobin downtrending again to 7, s/p 1 unit PRBC today. Repeat CBC now - anemia panel ordered Hypothyroidism - levothyroxine Diabetes - continue lantus CAD/HTN/HL - aspirin, statin, metoprolol CKD - creatinine 1.17, at baseline Disposition: f/u repeat blood cultures
[2019-03-11 00:02] LABS: Hemoglobin 8.8 g/dL (12.0-16.0); Mean Corpuscular Hemoglobin 27.5 pg (27.0-31.0); Mean Corpuscular Volume 86.1 fL (78.0-98.0); Mean Platelet Volume 8.2 fL (7.4-10.4); Platelet Count 214 thou/uL (130-400); Red Blood Cell (RBC) Count 3.21 mill/uL (4.20-5.40); White Blood Cell (WBC) Count 4.6 thou/uL (4.8-10.8)
[2019-03-11 01:04] LABS: Band 3 % (5-11); Eosinophils 4 % (0-10); Lymphocytes 5 % (21-51); MDiff Complete? YES; Monocytes 6 % (0-10); Neutrophil 82 % (42-75)
[2019-03-11] MEDS: Sodium Chloride 0.9% 1,000 ML IV SCH (01:11)
[2019-03-11 05:36] LABS: Hemoglobin 8.8 g/dL (12.0-16.0); Mean Corpuscular HGB CONC 32.8 g/dL (32.0-36.0); Mean Corpuscular Hemoglobin 28.1 pg (27.0-31.0); Mean Corpuscular Volume 85.5 fL (78.0-98.0); Mean Platelet Volume 7.9 fL (7.4-10.4); Platelet Count 218 thou/uL (130-400); RBC Distribution Width 17.3 % (11.5-14.5); Red Blood Cell (RBC) Count 3.12 mill/uL (4.20-5.40)
[2019-03-11 05:55] LABS: ALT (SGPT) 31 U/L (8-55); AST (SGOT) 19 U/L (5-34); Albumin 2.9 g/dL (3.4-4.8); Alkaline Phosphatase 139 U/L (40-110); Anion Gap 10 mmol/L (10-20); BUN (Urea Nitrogen) 8 mg/dL (9.8-20.1); Bilirubin, Total 0.5 mg/dL (0.2-1.2); Calc. Creatinine Clearance 62 mL/min (70-130); Calcium 8.4 mg/dL (7.8-10.44); Carbon Dioxide 21 mmol/L (23-31); Chloride 112 mmol/L (98-107); Estimated GFR-MDRD 52; Globulin 2.3 g/dL (2.4-3.5); Glucose 76 mg/dL (83-110); Iron 37 ug/dL (50-170); Iron Binding Capacity, Total 180 mcg/dL (265-497); Potassium 3.4 mmol/L (3.5-5.1); Protein, Total 5.2 g/dL (6.0-8.3); Sodium 140 mmol/L (136-145)
[2019-03-11] MEDS: Levothyroxine Sodium 88 MCG TAB PO SCH (06:06)
[2019-03-11] MEDS: Cefepime 1 GM in Sodium Chloride 0.9% 100 ML IVPB SCH ×2 (08:10→20:08)
[2019-03-11] MEDS ORDERED: Potassium Chloride 20 MEQ TAB PO SCH (09:15)
[2019-03-11] MEDS: Aspirin 81 mg Enteric Coated Tablet PO SCH (09:53)
[2019-03-11] MEDS: Magnesium Oxide 400 MG TAB PO SCH ×2 (09:53→20:08)
[2019-03-11] MEDS: Folic Acid 1 MG TAB PO SCH (09:53)
[2019-03-11] MEDS: Multivitamin W/ Minerals 1 TAB PO SCH (09:53)
--- NOTE | 2019-03-11 14:55 | PDOC.MOPN ---
- Vital Signs Vital Signs: Vital Signs (12 hours) Temp Pulse Resp BP Pulse Ox 03/11/19 08:00 98.8 F 72 16 147/67 H 93 L Weight Weight 175 lb 0.752 oz - Physical Exam General: Alert HEENT: Atraumatic Lungs: Clear to auscultation Cardiovascular: Regular rate Abdomen: Normal bowel sounds Extremities: No clubbing, No cyanosis Neurological: Normal gait - Labs Result Diagrams: 03/11/19 04:48 03/11/19 04:48 Lab results: Laboratory Results - last 24 hr 03/11/19 12:11: POC Glucose 156 H 03/11/19 04:48: WBC 4.0 L, RBC 3.12 L, Hgb 8.8 L, Hct 26.7 L, MCV 85.5, MCH 28.1 , MCHC 32.8, RDW 17.3 H, Plt Count 218, MPV 7.9 03/11/19 04:48: Vitamin B12 290 03/11/19 04:48: Folate 17.90 03/11/19 04:48: Sodium 140, Potassium 3.4 L, Chloride 112 H, Carbon Dioxide 21 L , Anion Gap 10, BUN 8 L, Creatinine 1.05, Estimated GFR (MDRD) 52, Glucose 76 L , Calcium 8.4, Iron 37 L, TIBC 180 L, % Saturation 21, Total Bilirubin 0.5, AST 19, ALT 31, Alkaline Phosphatase 139 H, Serum Total Protein 5.2 L, Albumin 2.9 L , Globulin 2.3 L, Albumin/Globulin Ratio 1.3 03/10/19 22:15: WBC 4.6 L, RBC 3.21 L, Hgb 8.8 L, Hct 27.6 L, MCV 86.1, MCH 27.5 , MCHC 32.0, RDW 17.0 H, Plt Count 214, MPV 8.2, Neutrophils % (Manual) 82 H, Band Neuts % (Manual) 3 L, Lymphocytes % (Manual) 5 L, Monocytes % (Manual) 6, Eosinophils % (Manual) 4 03/10/19 21:04: POC Glucose 134 H 03/10/19 19:54: Vancomycin Trough 8.2 03/10/19 16:37: POC Glucose 148 H 03/10/19 11:15: Blood Type AB POSITIVE, Antibody Screen POSITIVE H, Antibody Identification ANTIBODY-UNKNOWN SPECIFICITY, Crossmatch See Detail A/P - Problem (1) Anemia Current Visit: Yes Code(s): D64.9 - ANEMIA, UNSPECIFIED Status: Acute (2) CKD (chronic kidney disease) stage 3, GFR 30-59 ml/min Current Visit: Yes Code(s): N18.3 - CHRONIC KIDNEY DISEASE, STAGE 3 (MODERATE ) Status: Acute (3) Multiple myeloma in relapse Current Visit: Yes Code(s): C90.02 - MULTIPLE MYELOMA IN RELAPSE Status: Acute - Plan Plan: 1. change to oral antibiotics if ok with Shannan Sanchez 2. f/u in clinic 3. cont to hold darzalex
--- NOTE | 2019-03-11 16:32 | CON ---
DATE OF CONSULTATION: 03/11/2019 REASON FOR CONSULTATION: Fever and multiple myeloma. HISTORY OF PRESENT ILLNESS: A 73-year-old, who has a history of multiple myeloma on chemotherapy following stem cell transplant. She also has type 2 diabetes, hypertension, and has a MediPort in the right subclavian location. The patient has had three episodes of what she describes as UTI. The most recent one was started three weeks ago and she had some fever and some urinary symptoms, was given initially Macrodantin and after that, transitioned to levofloxacin. She took one dose of levofloxacin and developed a high temperature and was admitted. Initial BP 120/70 and temperature 101.2. The initial exam was fairly unremarkable and the labs; white cell count 9.3, hemoglobin 7.5, MCV 83, and platelets 283 with 84% neutrophils. Initial sodium 134 and creatinine 1.63 with a baseline of 0.98. Liver profile was normal except for alkaline phosphatase is 214. It is probably bone origin. CK was normal. Troponin normal. Albumin 3.2 and globulin 2.5. Urinalysis greater than 50 wbc's. Microbiology, we have a urine culture from March 06 with Pseudomonas aeruginosa with a very broad susceptibility profile. Currently, she is feeling well or better. No headaches, visual symptoms, sore throat, odynophagia, or dysphagia. No back pain or maybe some back pain. A little bit of cough, posterior nasal drip. No wheezing. No abdominal pain or diarrhea. No genitourinary symptoms any longer. PAST MEDICAL HISTORY: Multiple myeloma, prior stem cell transplant, type 2 diabetes, port placement, chemotherapy, hypertension, and hypothyroidism. PAST SURGICAL HISTORY: Cholecystectomy, bypass graft surgery, and venous insufficiency. SOCIAL HISTORY: Never smoker. ALLERGIES: NONE. CURRENT MEDICATIONS: 1. Lipitor. 2. Cefepime. 3. Dextrose. 4. Glucagon. 5. Insulin. 6. Vancomycin. 7. Metoprolol. PHYSICAL EXAMINATION: VITAL SIGNS: T-max 99, blood pressure 140/60, pulse 72, respiratory rate 16, and O2 saturation 93. GENERAL: Appears chronically ill, in no acute distress. Port is accessed. No skin abnormalities. No lymphadenopathy. HEENT: Ocular movements conjugate. Pale conjunctivae. Oral cavity normal. NECK: Supple. LUNGS: Symmetric clear breath sounds. HEART: S1 and S2. Regular rate. No S3 or S4. ABDOMEN: Soft, not distended or tender. No ascites. No bladder distention. EXTREMITIES: No joint inflammatory activity. She has a stasis dermatitis in lower extremities. Pulses 1+ in dorsalis pedis. Moves extremities equally. LABORATORY DATA: White cell count is 9.3 and now 4.0, hemoglobin 8.8, platelets 218, and 80% neutrophils. Creatinine is at 1.05 and GFR 52. Repeat urine culture, no growth at [address] abdomen and pelvis from 2 days ago, abnormal left perinephric stranding suggestive of pyelonephritis, pancreatic head calcifications, sequela of prior pancreatitis, and mild splenomegaly. ASSESSMENT: 1. Multiple myeloma following stem cell transplant on chemotherapy. 2. Pyelonephritis with a broadly susceptible Pseudomonas aeruginosa pathogen. Bacteremia is likely to represent contamination of the sample rather than true bacteremia. DISCUSSION: The patient does not have any evidence of urological abnormality that needs intervention and her postvoid residuals are normal. So, we will switch her tomorrow to oral levofloxacin and treat for about 2 weeks total. The patient would be a candidate for suppressive antimicrobial therapy or D-mannose. Job ID: [id number]
--- NOTE | 2019-03-11 17:59 | PDOC.HOSPP ---
- Subjective Encounter Date: 03/11/19 Encounter Time: 16:00 Subjective: THe patient is doing well today, denies fevers, chills, sweating, abdominal pain, nausea, vomiting, diarrhea. She was ambulating well in the hallway. Blood cultures grew 1/2 micrococcus, repeat cultures negative. Plan to switch to oral cipro tomorrow - Objective Vital Signs & Weight: Vital Signs (12 hours) Temp Pulse Resp BP Pulse Ox 03/11/19 08:00 98.8 F 72 16 147/67 H 93 L Weight Weight 175 lb 0.752 oz I&O: 03/10/19 03/11/19 03/12/19 06:59 06:59 06:59 Intake Total 440 1408 Balance 440 1408 Result Diagrams: 03/11/19 04:48 03/11/19 04:48 Additional Labs: Accuchecks 03/11/19 03/11/19 03/10/19 16:00 12:11 21:04 POC Glucose 144 H 156 H 134 H Hospitalist ROS - Review of Systems Constitutional: denies: fever, chills ENT: denies: ear discharge Respiratory: denies: dry, wheezing Cardiovascular: denies: chest pain, palpitations Gastrointestinal: denies: nausea, vomiting, hematochezia - Medication Medications: Active Medications Generic Name Dose Route Start Last Admin Trade Name Bhavya PRN Reason Stop Dose Admin Aspirin 81 mg 03/09/19 09:00 03/11/19 09:53 Ecotrin PO 81 mg DAILY JONO Administration Atorvastatin Calcium 20 mg 03/09/19 21:00 03/10/19 21:20 Lipitor PO 20 mg HS JONO Administration Folic Acid 1 mg 03/09/19 09:00 03/11/19 09:53 Folvite PO 1 mg DAILY JONO Administration Gabapentin 200 mg 03/09/19 21:00 03/10/19 21:19 Neurontin PO 200 mg HS JONO Administration Cefepime HCl 1 gm/ Sodium 100 mls @ 200 mls/hr 03/09/19 08:00 03/11/19 08:10 Chloride IVPB 100 mls 0800,2000 JONO Administration Insulin Glargine 45 units/ 0.45 mls @ 0 mls/hr 03/09/19 21:00 03/10/19 21:17 Miscellaneous Medication SC 0.45 mls HS JONO Administration Iron/Minerals/Multivitamins 1 tab 03/09/19 09:00 03/11/19 09:53 Theragran M PO 1 tab DAILY JONO Administration Levothyroxine Sodium 88 mcg 03/09/19 09:00 03/11/19 06:06 Synthroid PO 88 mcg 0600 JONO Administration Magnesium Oxide 400 mg 03/09/19 09:00 03/11/19 09:53 Magnesium Oxide PO 400 mg BID JONO Administration Metoprolol Succinate 25 mg 03/09/19 21:00 03/10/19 21:21 Toprol Xl PO 25 mg HS JONO Administration - Exam General Appearance: NAD, awake alert Eye: PERRL, anicteric sclera ENT: normocephalic atraumatic Neck: supple, no JVD Heart: RRR, no murmur, no gallops, no rubs Respiratory: CTAB, no wheezes, no rales, no ronchi Gastrointestinal: soft, non-tender, non-distended Extremities: no cyanosis, no clubbing, no edema Skin: normal turgor, no lesions, no rashes Neurological: cranial nerve grossly intact, normal sensation to touch, no focal deficits, no new deficit Musculoskeletal: normal tone, normal strength, no muscle wasting Psychiatric: normal affect, normal behavior, A&O x 3, oriented to person, oriented to place, oriented to time Hosp A/P - Plan Blood culture: 1/2 gram positive cocci Chest x ray: negative CT abdomen: pyelonephritis. Fibroid. Mild splenomegaly. Duplication of right renal collecting system. Moderate atherosclerosis This is a 73 year old female with recurrent UTI who presented with subjective fever on levaquin. Blood culture growing 1/2 gram positive cocci, started on vanc and cefepime, plan to switch to oral tomorrow. #Recurrent Pseudomonal UTI with pyelonephritis #Possible gram positive bacteremia - patient reported fever at home, however afebrile in the hospital. Started on vanc and cefepime empirically currently day 3., 1/2 blood cultures grew Micrococcus, repeat cultures negative. ID consulted, plan to discontinue vancomycin, continue cefepime for today. Switch to levaquin tomorrow on d/c for two weeks - urology consult, recs appreciated. No intervention for duplication of right renal collecting system Multiple myeloma - oncology on board, continue to hold treatment Anemia of chronic disease - hemoglobin improved to 8.8, s/p 1 unit PRBC - B12 and folate normal - Hypothyroidism - levothyroxine Diabetes - continue lantus CAD/HTN/HL - aspirin, statin, metoprolol CKD - creatinine 1.17, at baseline Disposition: d/c in am tomorrow Code status: full code
[2019-03-11] MEDS: Insulin Glargine 45 UNITS in Pre-Filled Syringe 1 EACH SC SCH (20:07)
[2019-03-11] MEDS: Atorvastatin Calcium 20 MG TAB PO SCH (20:08)
[2019-03-11] MEDS: Gabapentin 100 MG CAP PO SCH (20:08)
[2019-03-12] MEDS: Levothyroxine Sodium 88 MCG TAB PO SCH (05:39)
[2019-03-12 05:59] LABS: Hemoglobin 9.3 g/dL (12.0-16.0); Mean Corpuscular HGB CONC 32.9 g/dL (32.0-36.0); Platelet Count 210 thou/uL (130-400); RBC Distribution Width 17.3 % (11.5-14.5); Red Blood Cell (RBC) Count 3.31 mill/uL (4.20-5.40); White Blood Cell (WBC) Count 5.1 thou/uL (4.8-10.8)
[2019-03-12 06:18] LABS: Anion Gap 10 mmol/L (10-20); BUN (Urea Nitrogen) 6 mg/dL (9.8-20.1); Calc. Creatinine Clearance 65 mL/min (70-130); Calcium 8.7 mg/dL (7.8-10.44); Carbon Dioxide 23 mmol/L (23-31); Chloride 113 mmol/L (98-107); Estimated GFR-MDRD 55; Glucose 77 mg/dL (83-110); Potassium 3.7 mmol/L (3.5-5.1); Sodium 142 mmol/L (136-145)
[2019-03-12 07:08] VITALS: BP 159/70; TEMP 97.9
[2019-03-12] MEDS: Aspirin 81 mg Enteric Coated Tablet PO SCH (08:22)
[2019-03-12] MEDS: Folic Acid 1 MG TAB PO SCH (08:23)
[2019-03-12] MEDS: Multivitamin W/ Minerals 1 TAB PO SCH (08:23)
[2019-03-12] MEDS: Cefepime 1 GM in Sodium Chloride 0.9% 100 ML IVPB SCH (08:23)
[2019-03-12] MEDS: Magnesium Oxide 400 MG TAB PO SCH (08:23)
--- NOTE | 2019-03-12 14:09 | PDOC.MOPN ---
Interval History: wants to go home, no fever. Feels well. - Vital Signs Vital Signs: Vital Signs (12 hours) Temp Pulse Resp BP Pulse Ox 03/12/19 07:05 97.9 F 70 16 159/70 H 100 Weight Weight 175 lb 0.752 oz - Physical Exam General: Alert, Oriented x3, No acute distress HEENT: Atraumatic, PERRLA, EOMI, Mucous membr. moist/pink Lungs: Clear to auscultation, Normal air movement Cardiovascular: Regular rate, Normal S1, Normal S2, No murmurs, Gallops, Rubs Abdomen: Normal bowel sounds, Soft, No tenderness, No hepatospenomegaly, No masses Extremities: No clubbing, No cyanosis, No edema, Normal pulses, No tenderness/ swelling Skin: No rashes, No breakdown, No significant lesion Neurological: Normal gait, Normal speech, Strength at 5/5 X4 ext, Normal tone, Sensation intact, Cranial nerves 3-12 NL, Reflexes 2+ Psych/Mental Status: Mental status NL, Mood NL - Labs Result Diagrams: 03/12/19 05:42 03/12/19 05:42 Lab results: Laboratory Results - last 24 hr 03/12/19 11:57: POC Glucose 184 H 03/12/19 05:46: POC Glucose 75 03/12/19 05:42: WBC 5.1, RBC 3.31 L, Hgb 9.3 L, Hct 28.1 L, MCV 85.0, MCH 28.0, MCHC 32.9, RDW 17.3 H, Plt Count 210, MPV 8.0 03/12/19 05:42: Sodium 142, Potassium 3.7, Chloride 113 H, Carbon Dioxide 23, Anion Gap 10, BUN 6 L, Creatinine 0.99, Estimated GFR (MDRD) 55, Glucose 77 L, Calcium 8.7 03/11/19 20:16: POC Glucose 154 H 03/11/19 16:00: POC Glucose 144 H Status: lab reviewed by me A/P - Problem (1) Anemia Current Visit: Yes Code(s): D64.9 - ANEMIA, UNSPECIFIED Status: Acute (2) Multiple myeloma in relapse Current Visit: Yes Code(s): C90.02 - MULTIPLE MYELOMA IN RELAPSE Status: Acute (3) UTI (urinary tract infection) Current Visit: Yes Status: Acute - Plan Plan: 1. Hold Darzalex for now 2. Follow-up with Dr. Jin next week. 3. Procrit shot at that time if hgb < 11 4. Continue antibiotics
--- NOTE | 2019-03-14 06:13 | PQF ---
[employer] Crystal Reports Winform ViewerDABBRONA Kearney ELDER RAMIREZ MD [id number] CLINICAL DOCUMENTATION CLARIFICATION FORM: POST DISCHARGE Addendum to original discharge summary date: ____03/12/2019 Late entry note date: 03/15/2019 DATE: 03/14/2019 ATTN: ELDER KATE MD Please exercise your independent, professional judgment in responding to the clarification form. Clinical indicators are provided on the bottom of this form for your review Please check appropriate box(s) to clarify if the following diagnosis has been ruled in or ruled out: SEPSIS (CDI/Coding list diagnosis here) [ /] Ruled in diagnosis [ ] Continue to treat [ /] Resolved [ ] Ruled out diagnosis [ ] Cannot rule out diagnosis [ ] Other diagnosis [ ] Unable to determine In addition, please specify: Present on Admission (POA): [ / ] Yes [ ] No [ ] Unable to determine For continuity of documentation, please document condition throughout progress notes and discharge summary. Thank You. CLINICAL INDICATORS - SIGNS / SYMPTOMS / LAB Fever - Documented in H&P on 03/08 by ELDER RAMIREZ MD WBC 4.7 on 03/10 - Docuimented in Laboratory Results RR level 183 on 03/09 - Documented in Vital Signs SEPSIS - Documented in H&P on 03/08 by ELDER RAMIREZ MD Febrile illness 2/2 UTI - Documented in PNs on 03/09 by Eladio Todd RISK FACTORS UTI - Documented in H&P on 03/08 by ELDER RAMIREZ MD Multiple myeloma - Documented in H&P on 03/08 by ELDER RAMIREZ MD TREATMENTS IV antibiotics. Continue with IV cefepime and IV vancomycin - Documented in H&P on 03/08 by ELDER RAMIREZ MD Continue broad spectrum antibiotics - Documented in Hospital PNs on 03/09 by Junie Rivera Obi, MD [employer] Crystal Reports Winform Viewer (This form is maintained as a part of the permanent medical record) 2014 [employer]. All Rights Reserved [email or web address] [not provided] MTDD
== END 2019-03-12 15:30 | disposition home or self-care (01) | DRG 872 ==
LOC: ERS 18:55 → ONC 23:15
PROVIDERS: ADMIT Internal Medicine; ATTEND Internal Medicine
DX: A41.9 Sepsis, unspecified organism (principal); N39.0 Urinary tract infection, site not specified; C90.02 Multiple myeloma in relapse; N18.3 Chronic kidney disease, stage 3 (moderate); E11.22 Type 2 diabetes mellitus with diabetic chronic kidney disease; D63.1 Anemia in chronic kidney disease; D70.1 Agranulocytosis secondary to cancer chemotherapy; R53.81 Other malaise; T45.1X5A Adverse effect of antineoplastic and immunosuppressive drugs, initial encounter; E78.5 Hyperlipidemia, unspecified; E03.9 Hypothyroidism, unspecified; E11.65 Type 2 diabetes mellitus with hyperglycemia; I12.9 Hypertensive chronic kidney disease with stage 1 through stage 4 chronic kidney disease, or unspecified chronic kidney disease; B96.5 Pseudomonas (aeruginosa) (mallei) (pseudomallei) as the cause of diseases classified elsewhere; E87.6 Hypokalemia; Z90.49 Acquired absence of other specified parts of digestive tract; Z95.1 Presence of aortocoronary bypass graft; Z92.25 Personal history of immunosuppression therapy
CPT/HCPCS: 36415; 36416; 36430; 71045; 74176; 80048; 80053; 80069; 80202; 81001; 81003; 81015; 82550; 82607; 82728; 82746; 83540; 83550; 83605; 83690; 83880; 84484; 85025; 85027; 86850; 86870; 86900; 86901; 86922; 87040; 87077; 87086; 87149; 87186; 87804; 93005; 96361; 96365; 96367; J0692; J1815; J3370; J3490; J7050; P9016

== ENCOUNTER 2020-01-01 10:42 | Outpatient (CLI) | payer MEDICARE, BC ==
--- NOTE | 2020-01-01 11:52 | MMO ---
Bilateral MAMMO Bilat Screen [facility]. CLINICAL HISTORY: Patient is 74 years old and is seen for screening. The patient has the following family history of breast cancer: 2 aunts. The patient has a history of other cancer in 2008 and other cancer in 2008. VIEWS: The views performed were: bilateral craniocaudal with tomosynthesis and bilateral mediolateral oblique with tomosynthesis. FILMS COMPARED: The present examination has been compared to prior imaging studies performed at 06/19/2014, 06/21/2015 and 06/22/2016. This study has been interpreted with the assistance of computer-aided detection. MAMMOGRAM FINDINGS: There are scattered fibroglandular densities. Finding 1: There are stable benign appearing calcifications seen in both breasts. Finding 2: There are stable benign appearing densities seen in both breasts. There are no suspicious masses, suspicious calcifications, or new areas of architectural distortion. IMPRESSION: THERE IS NO MAMMOGRAPHIC EVIDENCE OF MALIGNANCY. A ROUTINE FOLLOW-UP MAMMOGRAM IN 1 YEAR IS RECOMMENDED. THE RESULTS OF THIS EXAM WERE SENT TO THE PATIENT. ACR BI-RADS Category 2 - Benign finding MAMMOGRAPHY NOTE: 1. A negative mammogram report should not delay a biopsy if a dominant of clinically suspicious mass is present. 2. Approximately 10% to 15% of breast cancers are not detected by mammography. 3. Adenosis and dense breasts may obscure an underlying neoplasm. Reported by: RAVEN OJEDA MD Electonically Signed: [id number]
== END 2020-01-01 10:43 | disposition home or self-care (01) ==
LOC: BICMAMMO 10:42
PROVIDERS: ATTEND Physician Assistant
DX: Z12.31 Encounter for screening mammogram for malignant neoplasm of breast (principal); Z85.89 Personal history of malignant neoplasm of other organs and systems; Z80.3 Family history of malignant neoplasm of breast
CPT/HCPCS: 77063; 77067

== ENCOUNTER 2020-09-05 09:11 | Outpatient (CLI) | payer MEDICARE, OTHER | END 2020-09-05 09:12 | disposition home or self-care (01) | LOC: PET 09:11 | PROVIDERS: ATTEND Internal Medicine Hematology & Oncology | DX: C90.02 Multiple myeloma in relapse (principal) | CPT/HCPCS: 78815; A9552 ==

== ENCOUNTER 2021-04-03 13:30 | Outpatient (CLI) | payer MEDICARE, OTHER | END 2021-04-03 13:31 | disposition home or self-care (01) | LOC: BICMAMMO 13:30 | PROVIDERS: ATTEND Physician Assistant | DX: Z12.31 Encounter for screening mammogram for malignant neoplasm of breast (principal); Z80.3 Family history of malignant neoplasm of breast; Z85.89 Personal history of malignant neoplasm of other organs and systems | CPT/HCPCS: 77063; 77067 ==

== ENCOUNTER 2021-07-10 10:32 | Outpatient (CLI) | payer MEDICARE, OTHER | END 2021-07-10 10:33 | disposition home or self-care (01) | LOC: BICRAD 10:32 | PROVIDERS: ATTEND Family Medicine | DX: R07.89 Other chest pain (principal); J90 Pleural effusion, not elsewhere classified | CPT/HCPCS: 71046 ==

== ENCOUNTER 2021-07-14 12:35 | Outpatient (CLI) | payer MEDICARE, OTHER ==
[2021-07-15 17:56] LABS: SARS-CoV-2 PCR by NAA Not Detected (NotDetected)
== END 2021-07-14 12:36 | disposition home or self-care (01) ==
LOC: LABBT 12:35
PROVIDERS: ATTEND Internal Medicine Critical Care Medicine
DX: Z01.812 Encounter for preprocedural laboratory examination (principal); J90 Pleural effusion, not elsewhere classified; Z20.822 Contact with and (suspected) exposure to COVID-19
CPT/HCPCS: U0003; U0005

== ENCOUNTER 2021-07-16 08:27 | Day surgery (SDC) | payer MEDICARE, OTHER ==
[2021-07-14 09:49] VITALS: BMI 30.4
[2021-07-16 11:15] LABS: RBC Count-Automated (BF) 8602 /cu.mm; WBC/Nucleated-Auto (BF) 26 /cu.mm
[2021-07-16 11:18] LABS: Pleural Fluid, Protein 5.7 g/dL
[2021-07-16 12:01] LABS: Body Fluid Source Thoracentesis Fluid; Tube # 3
[2021-07-16 12:02] LABS: BF Color Pink; Clarity Cloudy/Turbid (Clear)
[2021-07-16 12:06] LABS: BF Segmented Neutrophils 24 %; Cell Count Non Hematic 33 %; Lymphocytes 43 %
== END 2021-07-16 10:10 | disposition home or self-care (01) ==
LOC: SDC 08:27
PROVIDERS: ATTEND Internal Medicine Critical Care Medicine
PROC: 0W9B3ZZ Drainage of Left Pleural Cavity, Percutaneous Approach (ICD-10-PCS; principal; 2021-07-16)
DX: J90 Pleural effusion, not elsewhere classified (principal); D47.2 Monoclonal gammopathy; D61.810 Antineoplastic chemotherapy induced pancytopenia; T45.1X5A Adverse effect of antineoplastic and immunosuppressive drugs, initial encounter; N39.0 Urinary tract infection, site not specified; E11.51 Type 2 diabetes mellitus with diabetic peripheral angiopathy without gangrene; E11.22 Type 2 diabetes mellitus with diabetic chronic kidney disease; N18.9 Chronic kidney disease, unspecified; E11.40 Type 2 diabetes mellitus with diabetic neuropathy, unspecified; I25.10 Atherosclerotic heart disease of native coronary artery without angina pectoris; I10 Essential (primary) hypertension; E78.00 Pure hypercholesterolemia, unspecified; E66.9 Obesity, unspecified; Z68.30 Body mass index [BMI] 30.0-30.9, adult; Z79.2 Long term (current) use of antibiotics; Z79.4 Long term (current) use of insulin; Z79.82 Long term (current) use of aspirin; Z79.899 Other long term (current) drug therapy; Z95.1 Presence of aortocoronary bypass graft; C90.00 Multiple myeloma not having achieved remission; R16.1 Splenomegaly, not elsewhere classified
CPT/HCPCS: 32554; 78815; 82150; 82945; 83615; 83986; 84157; 84478; 85060; 87070; 87116; 87205; 87206; 88112; 88305; 89051; A9552

== ENCOUNTER 2021-07-16 12:30 | Outpatient (CLI) | payer MEDICARE, OTHER | END 2021-07-16 12:31 | disposition home or self-care (01) | LOC: PET 12:30 | PROVIDERS: ATTEND Internal Medicine Hematology & Oncology | DX: C90.00 Multiple myeloma not having achieved remission (principal); R16.1 Splenomegaly, not elsewhere classified | CPT/HCPCS: 78815; A9552 ==